=== PATIENT | female | born 1975 | race American Indian/Alaskan Native ===

== ENCOUNTER 2018-12-04 08:08 | Emergency (ER) | payer OTHER ==
[2018-12-04] MEDS ORDERED: NACL 0.9% 1000 ML 1,000 ML IV ONE (08:16)
[2018-12-04 08:27] LABS: Basophils % (Auto) 0.2 % (0.0-1.8); Eosinophils # (Auto) 0.1 K/mm3 (0.0-0.4); Eosinophils % (Auto) 1.2 % (0.0-4.3); Hemoglobin 11.4 gm/dl (10.1-14.3); Lymphocytes # (Auto) 0.8 K/mm3 (1.2-5.4); Lymphocytes % (Auto) 16.2 % (13.4-35.0); Mean Corpuscular HGB Conc 32 % (30-34); Mean Corpuscular Volume 83 fl (79-97); Monocytes # (Auto) 0.1 K/mm3 (0.0-0.8); Monocytes % (Auto) 2.5 % (0.0-7.3); Platelet Count 255 K/mm3 (140-440); Red Blood Count 4.34 M/mm3 (3.65-5.03); Red Cell Distribution Width 15.3 % (13.2-15.2)
[2018-12-04 08:43] LABS: Alanine Aminotransferase 11 units/L (7-56); Albumin 4.2 g/dL (3.9-5); BUN/Creatinine Ratio 10; Blood Urea Nitrogen 5 mg/dL (7-17); Hemolysis Index 0
--- NOTE | 2018-12-04 11:07 | Emergency Department Report ---
ED Abdominal Pain HPI - General Chief Complaint: Abdominal Pain Stated Complaint: GENERAL SICKNESS Time Seen by Provider: 12/04/18 09:57 Source: patient Mode of arrival: Ambulatory Limitations: No Limitations - History of Present Illness Initial Comments: Patient is a 43-year-old female who presents to ED complaining of diarrhea with some abdominal cramping that began Sunday afternoon. Patient states that she has a history of hypothyroidism and is on methimazole 5 mg daily. Patient states that she is a ParaGard IUD that is causing her to have some erythema to menstrual spotting. Patient denies any pelvic pain, fever, dysuria, vaginal discharge, chest pain, shortness of breath, dizziness - Related Data Previous Rx's Medication Instructions Recorded Last Taken Type Dicyclomine [Bentyl] 10 mg PO BID #30 capsule 12/04/18 Unknown Rx Famotidine [Pepcid] 20 mg PO BID #20 tablet 12/04/18 Unknown Rx Nitrofurantoin Monohyd/M-Cryst 100 mg PO BID #10 capsule 12/04/18 Unknown Rx [Macrobid 100 mg Capsule] Allergies Allergy/AdvReac Type Severity Reaction Status Date / Time No Known Allergies Allergy Verified 12/04/18 09:58 ED Review of Systems ROS: Stated complaint: GENERAL SICKNESS Other details as noted in HPI Comment: All other systems reviewed and negative ED Past Medical Hx - Social History Smoking Status: Never Smoker Substance Use Type: None - Medications Home Medications: Home Medications Medication Instructions Recorded Confirmed Last Taken Type Dicyclomine [Bentyl] 10 mg PO BID #30 capsule 12/04/18 Unknown Rx Famotidine [Pepcid] 20 mg PO BID #20 tablet 12/04/18 Unknown Rx Nitrofurantoin Monohyd/M-Cryst 100 mg PO BID #10 capsule 12/04/18 Unknown Rx [Macrobid 100 mg Capsule] ED Physical Exam - General Limitations: No Limitations General appearance: alert, in no apparent distress - Head Head exam: Present: atraumatic, normocephalic - Eye Eye exam: Present: normal appearance - ENT ENT exam: Present: mucous membranes moist - Neck Neck exam: Present: normal inspection - Respiratory Respiratory exam: Present: normal lung sounds bilaterally. Absent: respiratory distress - Cardiovascular Cardiovascular Exam: Present: regular rate, normal rhythm. Absent: systolic murmur, diastolic murmur, rubs, gallop - GI/Abdominal GI/Abdominal exam: Present: soft, normal bowel sounds. Absent: distended, tenderness, guarding - Extremities Exam Extremities exam: Present: normal inspection - Back Exam Back exam: Present: normal inspection - Neurological Exam Neurological exam: Present: alert, oriented X3 - Psychiatric Psychiatric exam: Present: normal affect, normal mood - Skin Skin exam: Present: warm, dry, intact, normal color. Absent: rash ED Course Vital Signs 12/04/18 12/04/18 08:13 14:42 Temperature 98.6 F 98.2 F Pulse Rate 83 67 Respiratory 18 16 Rate Blood Pressure 113/71 Blood Pressure 109/68 [Right] O2 Sat by Pulse 98 100 Oximetry ED Medical Decision Making - Lab Data Result diagrams: 12/04/18 08:18 12/04/18 08:18 - Radiology Data 43 y o female presents with mild cystitis/gastroenteritis. Patient is able to ingest food and liquids the mouth. Discussed the patient does resolve on its own. Discuss increase hydration initially replenish with Gatorade or prior age Discuss follow-up with her primary care physician. Discussed the patient to follow up with her [employer] regarding the IUD. Patient has no neurological deficit. Vital signs are stable she is in no acute distress. Critical care attestation.: If time is entered above; I have spent that time in minutes in the direct care of this critically ill patient, excluding procedure time. ED Disposition Clinical Impression: Gastroenteritis Disposition: DC-01 TO HOME OR SELFCARE Is pt being admited?: No Does the pt Need Aspirin: No Condition: Stable Instructions: Gastroenteritis (ED), Abdominal Pain (ED) Additional Instructions: Make sure to follow up with the primary care physician as discussed. Take all your medications as you've been prescribed. If you have any worsening symptoms or develop new symptoms please return to ED immediately. Prescriptions: Dicyclomine [Bentyl] 10 mg PO BID #30 capsule Nitrofurantoin Monohyd/M-Cryst [Macrobid 100 mg Capsule] 100 mg PO BID #10 capsule Famotidine [Pepcid] 20 mg PO BID #20 tablet [facility] [Primary Care Provider] - 3-5 Days NOMAN SUNG MD [Referring] - 3-5 Days [facility] [Outside] - 3-5 Days [facility] [Provider Group] - 3-5 Days Forms: Accompanied Note, Work/School Release Form(ED) Time of Disposition: 14:16
[2018-12-04 13:22] LABS: Bilirubin,Urine NEG (Negative); Blood,Urine LG (Negative); Color,Urine Yellow (Yellow); Mucus,Urine FEW /HPF; Protein,Urine <15 mg/dL mg/dL (Negative); Urobilinogen,Urine < 2.0 mg/dL (<2.0)
[2018-12-04 13:25] LABS: RBC,Urine > 182.0 /HPF (0.0-6.0)
[2018-12-04] MEDS ORDERED: ZOFRAN ODT PO ONE (13:50)
[2018-12-04] MEDS ORDERED: PEPCID PO ONE (13:51)
[2018-12-04] MEDS ORDERED: BENTYL ONE (13:57)
[2018-12-04] MEDS ORDERED: BENTYL PO ONE (14:00)
[2018-12-04] MEDS: BENTYL PO ONE ×2 (14:01→14:30)
[2018-12-04 14:53] VITALS: BP 109/68
== END 2018-12-04 14:45 | disposition home or self-care (01) ==
LOC: ED 08:08
DX: K52.9 Noninfective gastroenteritis and colitis, unspecified (principal)
CPT/HCPCS: 36415; 80053; 81001; 85025; 96360; 96361; 99283; J7030; Q0162

== ENCOUNTER 2019-10-14 07:23 | Emergency (ER) | payer OTHER ==
[2019-10-14 07:41] VITALS: BP 131/77
--- NOTE | 2019-10-14 08:34 | XRay Report ---
Lumbar spine-3 views INDICATION: pain. Back injury of unknown duration or etiology COMPARISON: None. IMPRESSION: Normal alignment. Minimal multilevel discogenic DJD. No acute osseous or soft tissue a bnormality. IUD in place. Signer Name: Be Miller MD Signed: 10/14/2019 8:30 AM Workstation Name: [id number]
[2019-10-14] MEDS ORDERED: KETOROLAC 60 MG/2 ML INJ IM ONE (08:42)
[2019-10-14] MEDS ORDERED: predniSONE 20 MG TAB PO ONE (08:42)
--- NOTE | 2019-10-14 09:17 | Emergency Department Report ---
ED Back Pain/Injury HPI - General Chief Complaint: Back Pain/Injury Stated Complaint: HIP PAIN Time Seen by Provider: 10/14/19 07:52 Source: patient Limitations: No Limitations - History of Present Illness Initial Comments: This is a 44-year-old female nontoxic, well nourished in appearance, no acute signs of distress presents to the ED with c/o of lower back pain. Patient sta makayla that the past 2 days he was moving and developed this pain. Patient states has history of sciatica nerve pain which is similar symptoms as today. Patient states that pain radiates through to his bilateral lower extremity. Patient denies any trauma. Denies any bladder or bowel instability. Patient denies any urinary symptoms. Denies any fever, chills, nausea, vomiting, headache, stiff neck, chest pain or shortness of breath. Patient denies any numbness or tingling. Denies any allergies. Denies significant past medical history. MD Complaint: back pain -: days(s) Similar Symptoms Previously: Yes Radiation: left leg, right leg Severity: mild Severity scale (0 -10): 8 Quality: aching Consistency: intermittent Improves With: immobilization, sitting upright Worsens With: movement, walking Context: while lifting, turning/twisting Associated Symptoms: denies other symptoms. denies: confusion, weakness, chest pain, numbness, difficulty walking, cough, difficulty urinating, diaphoresis, incontinence, fever/chills, constipation, headaches, abdominal pain, loss of appetite, malaise, nausea/vomiting, rash, seizure, shortness of breath, syncope - Related Data Previous Rx's Medication Instructions Recorded Last Taken Type Dicyclomine [Bentyl] 10 mg PO BID #30 capsule 12/04/18 Unknown Rx Famotidine [Pepcid] 20 mg PO BID #20 tablet 12/04/18 Unknown Rx Nitrofurantoin Monohyd/M-Cryst 100 mg PO BID #10 capsule 12/04/18 Unknown Rx [Macrobid 100 mg Capsule] Cyclobenzaprine [Flexeril] 10 mg PO QHS PRN #10 tablet 10/14/19 Unknown Rx Naproxen 500 mg PO Q12H PRN #20 tablet 10/14/19 Unknown Rx Allergies Allergy/AdvReac Type Severity Reaction Status Date / Time No Known Allergies Allergy Verified 12/04/18 09:58 ED Review of Systems ROS: Stated complaint: HIP PAIN Other details as noted in HPI Constitutional: denies: chills, fever Eyes: denies: eye pain, eye discharge, vision change ENT: denies: ear pain, throat pain Respiratory: denies: cough, shortness of breath, wheezing Cardiovascular: denies: chest pain, palpitations Endocrine: no symptoms reported Gastrointestinal: denies: abdominal pain, nausea, diarrhea Genitourinary: denies: urgency, dysuria, discharge Musculoskeletal: back pain. denies: joint swelling, arthralgia Skin: denies: rash, lesions Neurological: denies: headache, weakness, paresthesias Psychiatric: denies: anxiety, depression Hematological/Lymphatic: denies: easy bleeding, easy bruising ED Past Medical Hx - Past Medical History Previous Medical History?: No Additional medical history: hyperthyroidism - Surgical History Past Surgical History?: Yes Additional Surgical History: x 2 - Social History Smoking Status: Never Smoker Substance Use Type: None - Medications Home Medications: Home Medications Medication Instructions Recorded Confirmed Last Taken Type Dicyclomine [Bentyl] 10 mg PO BID #30 capsule 12/04/18 Unknown Rx Famotidine [Pepcid] 20 mg PO BID #20 tablet 12/04/18 Unknown Rx Nitrofurantoin Monohyd/M-Cryst 100 mg PO BID #10 capsule 12/04/18 Unknown Rx [Macrobid 100 mg Capsule] Cyclobenzaprine [Flexeril] 10 mg PO QHS PRN #10 tablet 10/14/19 Unknown Rx Naproxen 500 mg PO Q12H PRN #20 tablet 10/14/19 Unknown Rx ED Physical Exam - General Limitations: No Limitations General appearance: alert, in no apparent distress - Head Head exam: Present: atraumatic, normocephalic - Neck Neck exam: Present: normal inspection, full ROM. Absent: tenderness, meningismus, lymphadenopathy - Extremities Exam Extremities exam: Present: normal inspection, full ROM, normal capillary refill. Absent: tenderness, joint swelling - Back Exam Back exam: Present: normal inspection, full ROM, paraspinal tenderness (lumbar paraspinal). Absent: tenderness, CVA tenderness (R), CVA tenderness (L), muscle spasm, vertebral tenderness, rash noted - Expanded Back Exam Expanded Back exam: Absent: saddle anesthesia Back exam: Negative Straight Leg Raising: Left, Right - Neurological Exam Neurological exam: Present: alert, oriented X3, normal gait - Psychiatric Psychiatric exam: Present: normal affect, normal mood - Skin Skin exam: Present: warm, dry, intact, normal color. Absent: rash ED Course Vital Signs 10/14/19 07:37 Temperature 97.6 F Pulse Rate 79 Respiratory 18 Rate Blood Pressure 131/77 O2 Sat by Pulse 97 Oximetry - Reevaluation(s) Reevaluation #1: 10/14/19 09:14 Patient is speaking in full sentences with no signs of distress noted. ED Medical Decision Making - Medical Decision Making This is a 44-year-old female that presents with degenerative arthritis and low back strain. Patient is stable was examined by me. There is no spinal tenderness. There is no cauda equina syndrome during examination. No bladder or bowel instability. X-rays of lumbar spine has been obtained and dictated by radiologist. Patient is notified of the results with no questions noted by the patient. Patient received Toradol 60 mg IM and prednisone in the ED which stated that her symptoms has resolved and subsided. Patient is discharged with muscle relaxant and Motrin. Patient was instructed not to operate any machinery while taking muscle relaxant as they cause her drowsiness. Patient was referred to Follow-up with a primary care doctor in 3-5 days or if symptoms worsen and continue return to emergency room as soon as possible. At time of discharge, the patient does not seem toxic or ill in appearance. No acute signs of distress noted. Patient agrees to discharge treatment plan of care. No further questions noted by the patient. This chart is dictated with using [employer]ation [employer] Critical care attestation.: If time is entered above; I have spent that time in minutes in the direct care of this critically ill patient, excluding procedure time. 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 Qualifiers: Spinal osteoarthritis complication: unspecified spinal osteoarthritis Qualified Code(s): M47.816 - Spondylosis without myelopathy or radiculopathy, lumbar region Sciatica Qualifiers: Laterality: bilateral Qualified Code(s): M54.31 - Sciatica, right side; M54.32 - Sciatica, left side Low back strain Qualifiers: Encounter type: initial encounter Qualified Code(s): S39.012A - Strain of muscle, fascia and tendon of lower back, initial encounter Disposition: TO HOME OR SELFCARE Is pt being admited?: No Does the pt Need Aspirin: No Condition: Stable Instructions: Lumbar Radiculopathy (ED), Low Back Strain (ED), Cyclobenzaprine (By mouth) Additional Instructions: Follow-up with your primary care doctor in 3-5 days or if symptoms worsen such as bladder or bowel stability, chest pain, short of breath, numbness or tingling sensation in extremities, headache, dizziness, visual changes, nausea vomiting, or abdominal pain, return back to emergency room as was possible. Take ibuprofen and Flexeril as prescribed. Do not operate heavy machinery while taking Flexeril due to sedation Prescriptions: Cyclobenzaprine [Flexeril] 10 mg PO QHS PRN #10 tablet PRN Reason: Muscle Spasm Naproxen 500 mg PO Q12H PRN #20 tablet PRN Reason: Pain , Severe (7-10) Referrals: PRIMARY MD FRANCES [Primary Care Provider] - 3-5 Days FABRICIO MARTINEZ MD [Staff Physician] - 3-5 Days [facility] [Outside] - 3-5 Days Forms: Work/School Release Form(ED)
== END 2019-10-14 09:31 | disposition home or self-care (01) ==
LOC: ED 07:23
DX: S39.012A Strain of muscle, fascia and tendon of lower back, initial encounter (principal); M51.36 Other intervertebral disc degeneration, lumbar region; M54.42 Lumbago with sciatica, left side; M54.41 Lumbago with sciatica, right side; E03.9 Hypothyroidism, unspecified; Z98.890 Other specified postprocedural states; Z79.899 Other long term (current) drug therapy; X58.XXXA Exposure to other specified factors, initial encounter; Y93.89 Activity, other specified; Y92.89 Other specified places as the place of occurrence of the external cause; Y99.8 Other external cause status
CPT/HCPCS: 72100; 96372; 99283; J1885; J7512

== ENCOUNTER 2020-06-19 02:07 | Emergency (ER) | payer OTHER | END 2020-06-19 03:00 | disposition left against medical advice (07) | LOC: ED 02:07 | DX: R10.9 Unspecified abdominal pain (principal); Z53.21 Procedure and treatment not carried out due to patient leaving prior to being seen by health care provider ==